=== PATIENT | male | born 1960 | race African-American/Black ===

== ENCOUNTER 2016-05-30 17:11 | Emergency (ER) | payer MEDICAID ==
[2016-05-30 18:07] LABS: Basophils % (Auto) 0.9 % (0.0-1.8); Eosinophils % (Auto) 1.8 % (0.0-4.3); Hematocrit 36.6 % (35.5-45.6); Hemoglobin 12.2 gm/dl (11.8-15.2); Mean Corpuscular HGB Conc 33 % (32-34); Mean Corpuscular Hemoglobin 30 pg (28-32); Mean Corpuscular Volume 90 fl (84-94); Platelet Count 137 K/mm3 (140-440); Red Blood Count 4.06 M/mm3 (3.65-5.03); Red Cell Distribution Width 15.9 % (13.2-15.2); White Blood Count 4.7 K/mm3 (4.5-11.0)
[2016-05-30 18:16] LABS: Anion Gap 15 mmol/L; Blood Urea Nitrogen 19 mg/dL (9-20); Calcium 8.7 mg/dL (8.4-10.2); Carbon Dioxide 28 mmol/L (22-30); Chloride 99.9 mmol/L (98-107); Glucose 102 mg/dL (75-100); Potassium 3.8 mmol/L (3.6-5.0); Sodium 139 mmol/L (137-145)
[2016-05-30 18:31] LABS: Urine Drugs of Abuse Note Disclamer
[2016-05-30 18:56] LABS: Bilirubin,Urine NEG (Negative); Blood,Urine NEG (Negative); Ketones,Urine NEG (Negative); Leukocyte Esterase,Urine NEG (Negative); Nitrite,Urine NEG (Negative); Protein,Urine <15 mg/dL mg/dL (Negative); RBC,Urine < 1.0 /HPF (0.0-6.0); Urobilinogen,Urine < 2.0 mg/dL (<2.0)
--- NOTE | 2016-05-30 18:56 | Emergency Department Report ---
ED Psych HPI - General Chief Complaint: Psych Stated Complaint: MH Time Seen by Provider: 05/30/16 17:20 Source: EMS Mode of arrival: Stretcher Limitations: Language Barrier - History of Present Illness MD Complaint: feels depressed, altered mental status -: Gradual Associated Psychiatric Symptoms: depression, racing thoughts, auditory hallucinations, delusions History of same: Yes Quality: constant Improves With: medication Worsens With: none Context: significant life stressor Associated Symptoms: denies: denies other symptoms, confusion, headache, shortness of breath, nausea, vomiting, syncope, insomnia Treatments Prior to Arrival: none - Related Data Home Medications Medication Instructions Recorded Confirmed Last Taken Divalproex ER [DepaKOTE ER] 500 mg PO QHS 05/30/16 05/30/16 Unknown risperiDONE [RisperDAL] 4 mg PO QHS 05/30/16 05/30/16 Unknown Allergies Allergy/AdvReac Type Severity Reaction Status Date / Time Unable to Assess Allergy Unverified 05/30/16 17:19 ED Review of Systems ROS: Stated complaint: MH Other details as noted in HPI Comment: Unobtainable due to pts medical conditions ED Past Medical Hx - Past Medical History Previous Medical History?: Yes Hx Seizures: Yes Additional medical history: unable to obtain exact psych dx - Surgical History Additional Surgical History: unknown - Social History Smoking Status: Unknown if ever smoked - Medications Home Medications: Home Medications Medication Instructions Recorded Confirmed Last Taken Type Divalproex ER [DepaKOTE ER] 500 mg PO QHS 05/30/16 05/30/16 Unknown History risperiDONE [RisperDAL] 4 mg PO QHS 05/30/16 05/30/16 Unknown History ED Physical Exam - General Limitations: Language Barrier General appearance: alert, in no apparent distress - Head Head exam: Present: atraumatic, normocephalic - Eye Eye exam: Present: normal appearance - ENT ENT exam: Present: mucous membranes moist - Neck Neck exam: Present: normal inspection - Respiratory Respiratory exam: Present: normal lung sounds bilaterally. Absent: respiratory distress - Cardiovascular Cardiovascular Exam: Present: regular rate, normal rhythm. Absent: systolic murmur, diastolic murmur, rubs, gallop - GI/Abdominal GI/Abdominal exam: Present: soft, normal bowel sounds - Rectal Rectal exam: Present: deferred - Extremities Exam Extremities exam: Present: normal inspection - Back Exam Back exam: Present: normal inspection - Neurological Exam Neurological exam: Present: alert, oriented X3 - Psychiatric Psychiatric exam: Present: agitated, anxious - Skin Skin exam: Present: warm, dry, intact, normal color. Absent: rash ED Course Vital Signs 05/30/16 05/30/16 17:15 18:40 Temperature 98.1 F Pulse Rate 100 H Respiratory 16 16 Rate Blood Pressure 119/71 O2 Sat by Pulse 100 100 Oximetry ED Medical Decision Making - Lab Data Result diagrams: 05/30/16 17:43 05/30/16 17:43 - Medical Decision Making there is a significant language barrier, talking to landlord he became aggressive., labs neg , he has been stable. will consult psych for further evaluation and disposition,. psych agree on plan for discharge , i rescind the 1013 and will wait for transportation to go home. Critical care attestation.: If time is entered above; I have spent that time in minutes in the direct care of this critically ill patient, excluding procedure time. ED Disposition Clinical Impression: Schizophrenia Disposition: DISCHARGED TO HOME OR SELFCARE Is pt being admited?: No Does the pt Need Aspirin: No Condition: Good Referrals: PRIMARY CARE, [Primary Care Provider] - 3-5 Days Time of Disposition: 18:56
[2016-05-30] MEDS ORDERED: ATIVAN ONE (23:14)
[2016-05-31] MEDS ORDERED: ATIVAN IM ONE (06:06)
[2016-05-31 07:25] VITALS: BP 100/71
== END 2016-05-31 07:27 | disposition home or self-care (01) ==
LOC: EEVIPCON 17:11 → ED 17:11
DX: F20.9 Schizophrenia, unspecified (principal)
CPT/HCPCS: 36415; 80048; 80307; 81001; 85025; 96372; 99284; G0480; J2060; 80320